=== PATIENT | male | born 1980 | race African-American/Black ===

== ENCOUNTER 2017-08-04 20:05 | Inpatient (IN) | payer OTHER ==
[2017-08-04] MEDS ORDERED: ONDANSETRON 4 MG TAB.RAPDIS PO ONE (20:20)
[2017-08-04] MEDS ORDERED: NORMAL SALINE 1000 ML 1,000 ML IV ONE ×2 (20:20→22:20)
--- NOTE | 2017-08-04 20:22 | ER Document Report ---
ED Medical Screen (RME) - General Chief Complaint: Nausea/Vomiting Stated Complaint: VOMITING Time Seen by Provider: 08/04/17 20:16 Notes: RAPID MEDICAL EVALUATION DISCLOSURE I have seen this patient as part of a Rapid Medical Evaluation and, if applicable, placed any initially appropriate orders. The patient will be seen and fully evaluated, including a full history and physical exam, by a provider ( in Main ED or Fast Track) when a room becomes available. 29-year-old male here with complaints of heat exhaustion. 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 He is not tried anything for the symptoms other than to try staying hydrated. EXAM CTAB RRR Alert oriented conversational TRAVEL OUTSIDE OF THE [place] IN LAST 30 DAYS: No - Related Data Allergies/Adverse Reactions: No Known Allergies Allergy (Unverified 08/04/17 20:08) Past Medical History - Social History Chew tobacco use (# tins/day): No Frequency of alcohol use: Social Drug Abuse: None - Past Medical History Cardiac Medical History: Reports: Hx Hypertension Renal/ Medical History: Denies: Hx Peritoneal Dialysis Physical Exam - Vital signs Vitals: Temp Pulse Resp BP Pulse Ox 98.0 F 79 18 118/76 96 08/04/17 20:14 08/04/17 20:14 08/04/17 20:14 08/04/17 20:14 08/04/17 20:14 Course - Vital Signs Vital signs: Temp Pulse Resp BP Pulse Ox 98.0 F 79 18 118/76 96 08/04/17 20:14 08/04/17 20:14 08/04/17 20:14 08/04/17 20:14 08/04/17 20:14
[2017-08-04 20:54] LABS: ABSOLUTE BASOPHILS # (AUTO) 0.1 10^3/uL (0.0-0.2); ABSOLUTE LYMPHOCYTES (AUTO) 1.6 10^3/uL (0.5-4.7); ABSOLUTE MONOCYTES (AUTO) 0.6 10^3/uL (0.1-1.4); ABSOLUTE NEUT (AUTO) 5.3 10^3/uL (1.7-8.2); BASOPHILS % (AUTO) 0.7 % (0-2); HEMATOCRIT 49.4 % (37.9-51.0); HEMOGLOBIN 16.6 g/dL (13.5-17.0); LYMPHOCYTES % (AUTO) 21.5 % (13-45); MEAN CORPUSCULAR HEMOGLOBIN 27.9 pg (27.0-33.4); MEAN CORPUSCULAR HGB CONC 33.5 g/dL (32.0-36.0); MEAN CORPUSCULAR VOLUME 83 fl (80-97); MONOCYTES % (AUTO) 7.7 % (3-13); PLATELET COUNT 340 10^3/uL (150-450); RED BLOOD COUNT 5.94 10^6/uL (4.35-5.55); SEGMENTED NEUTROPHILS % (AUTO) 70.1 % (42-78); TOTAL CELLS COUNTED % (AUTO) 100 %; WHITE BLOOD COUNT 7.6 10^3/uL (4.0-10.5)
[2017-08-04 21:10] LABS: ALANINE AMINOTRANSFERASE 53 U/L (21-72); ALBUMIN 5.5 g/dL (3.5-5.0); ALKALINE PHOSPHATASE 61 U/L (38-126); ASPARTATE AMINO TRANSFERASE 51 U/L (17-59); BILIRUBIN,DIRECT 0.5 mg/dL (0.0-0.4); BILIRUBIN,TOTAL 2.4 mg/dL (0.2-1.3); BLOOD UREA NITROGEN 36 mg/dL (7-20); CALCIUM 10.3 mg/dL (8.4-10.2); CREATINE KINASE 622 U/L (55-170); GLUCOSE 113 mg/dL (75-110); LIPASE 167.4 U/L (23-300); POTASSIUM 3.9 mmol/L (3.6-5.0); TOTAL PROTEIN 9.9 g/dL (6.3-8.2)
[2017-08-04 21:16] LABS: CARBON DIOXIDE 30 mmol/L (22-30); CHLORIDE 97 mmol/L (98-107); SODIUM 148.6 mmol/L (137-145)
[2017-08-04 21:20] LABS: ANION GAP 22 (5-19)
--- NOTE | 2017-08-04 22:25 | ER Document Report ---
ED General - General Chief Complaint: Nausea/Vomiting Stated Complaint: VOMITING Time Seen by Provider: 08/04/17 20:16 Mode of Arrival: Ambulatory Information source: Patient Notes: 37-year-old male presents emergency department with complaints of nausea, vomiting, and dizziness after working out in the heat for over 6 hours today. Patient states that he has been drinking water but does not think that he has been drinking enough. Patient denies any chest pain, shortness of breath, abdominal pain. He states that he does have a history of hypertension and is on antihypertensive medications. He denies any other medical problems. TRAVEL OUTSIDE OF THE [place] IN LAST 30 DAYS: No - HPI Onset: This afternoon Onset/Duration: Gradual Quality of pain: No pain Severity: None Pain Level: Denies Associated symptoms: Nausea, Vomiting Exacerbated by: Denies Relieved by: Denies Similar symptoms previously: No Recently seen / treated by doctor: No - Related Data Allergies/Adverse Reactions: No Known Allergies Allergy (Verified 08/04/17 22:15) Past Medical History - General Information source: Patient - Social History Smoking Status: Current Some Day Smoker Chew tobacco use (# tins/day): No Frequency of alcohol use: Social Drug Abuse: None Family History: Reviewed & Not Pertinent Patient has suicidal ideation: No Patient has homicidal ideation: No - Past Medical History Cardiac Medical History: Reports: Hx Hypertension Renal/ Medical History: Denies: Hx Peritoneal Dialysis Review of Systems - Review of Systems Constitutional: No symptoms reported EENT: No symptoms reported Cardiovascular: Lightheaded Respiratory: No symptoms reported Gastrointestinal: Nausea, Vomiting Genitourinary: No symptoms reported Musculoskeletal: No symptoms reported Skin: No symptoms reported Neurological/Psychological: No symptoms reported Physical Exam - Vital signs Vitals: Temp Pulse Resp BP Pulse Ox 98.0 F 79 18 118/76 96 08/04/17 20:14 08/04/17 20:14 08/04/17 20:14 08/04/17 20:14 08/04/17 20:14 Interpretation: Normal - Notes Notes: PHYSICAL EXAMINATION: GENERAL: Well-appearing, well-nourished and in no acute distress. HEAD: Atraumatic, normocephalic. EYES: Pupils equal round and reactive to light, extraocular movements intact, sclera anicteric, conjunctiva are normal. ENT: Nares patent, oropharynx clear without exudates. Moist mucous membranes. NECK: Normal range of motion, supple without lymphadenopathy LUNGS: Breath sounds clear to auscultation bilaterally and equal. No wheezes rales or rhonchi. HEART: Regular rate and rhythm without murmurs ABDOMEN: Soft, nontender, nondistended abdomen. No guarding, no rebound. No masses appreciated. Musculoskeletal: Normal range of motion, no pitting or edema. No cyanosis. NEUROLOGICAL: Cranial nerves grossly intact. Normal speech, normal gait. Normal sensory, motor exams PSYCH: Normal mood, normal affect. SKIN: Warm, Dry, normal turgor, no rashes or lesions noted. Course - Re-evaluation Re-evalutation: 08/04/17 22:31 Labs obtained. Patient has elevated creatinine. Patient appears dehydrated. Nausea has resolved. Patient denies hx of renal failure. I will admit to the hospitalist for further treatment. - Vital Signs Vital signs: Temp Pulse Resp BP Pulse Ox 97.8 F 60 15 115/66 100 08/04/17 22:24 08/04/17 22:24 08/04/17 22:24 08/04/17 22:24 08/04/17 22:24 - Laboratory Result Diagrams: 08/04/17 20:36 08/04/17 20:36 Laboratory results interpreted by me: 08/04/17 08/04/17 20:36 20:36 RBC 5.94 H Sodium 148.6 H Chloride 97 L Anion Gap 22 H BUN 36 H Creatinine 3.88 H Est GFR ( Amer) 21 L Est GFR (Non-Af Amer) 17 L Glucose 113 H Calcium 10.3 H Total Bilirubin 2.4 H Direct Bilirubin 0.5 H Creatine Kinase 622 H Total Protein 9.9 H Albumin 5.5 H - EKG Interpretation by Me Additional EKG results interpreted by me: 08/04/17 22:42 EKG: Ventricular rate 73, MN interval 128, QRS duration 92, QTc 454, normal sinus rhythm, no ischemic changes. Discharge - Discharge Clinical Impression: Dehydration Renal failure Qualifiers: Renal failure chronicity: acute Acute renal failure type: unspecified Qualified Code(s): N17.9 - Acute kidney failure, unspecified Disposition: ADMITTED OBSERVATION Admitting Provider: Hospitalist Unit Admitted: Medical Floor
[2017-08-04] MEDS ORDERED: ACETAMINOPHEN 325 MG TABLET PO PRN (22:34)
[2017-08-04] MEDS ORDERED: ONDANSETRON 4 MG TAB.RAPDIS PO PRN (22:34)
[2017-08-04] MEDS ORDERED: CARVEDILOL 12.5 MG TABLET PO ONE (22:49)
--- NOTE | 2017-08-04 22:49 | PDOC H&P ---
History of Present Illness History of Present Illness: MAGY LINDSEY is a 37 year old black male patient with no significant past medical history except for hypertension presents with dizziness, nausea and vomiting of ingested material of 1 day duration. 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 Patient denies diarrhea or urinary complaints. He denies headache, blurring of vision or any seizure activity. His initial workup shows creatinine of 3.88 GFR 21 and CK of 622. The rest of his blood works are unremarkable. Past Medical History Cardiac Medical History: Reports: Hypertension Past Surgical History Past Surgical History: Reports: None Social History Smoking Status: Current Some Day Smoker Frequency of Alcohol Use: None Hx Recreational Drug Use: No Drugs: None - Advance Directive Resuscitation Status: Full Code Family History Family History: Reviewed & Not Pertinent, Hypertension Parental Family History Reviewed: Yes Children Family History Reviewed: Yes Sibling(s) Family History Reviewed.: Yes Medication/Allergy Home Medications: Lisinopril/Hydrochlorothiazide [Lisinopril-Hctz 20-25 mg Tab] 1 tab PO DAILY Allergies/Adverse Reactions: No Known Allergies Allergy (Verified 08/04/17 22:15) Review of Systems Constitutional: PRESENT: as per HPI Eyes: PRESENT: as per HPI Ears: PRESENT: as per HPI Nose, Mouth, and Throat: PRESENT: as per HPI Cardiovascular: PRESENT: as per HPI Respiratory: PRESENT: as per HPI Gastrointestinal: PRESENT: as per HPI Musculoskeletal: PRESENT: as per HPI Neurological: PRESENT: as per HPI Psychiatric: PRESENT: as per HPI Physical Exam Vital Signs: Temp Pulse Resp BP Pulse Ox 97.8 F 60 15 115/66 100 08/04/17 22:24 08/04/17 22:24 08/04/17 22:24 08/04/17 22:24 08/04/17 22:24 Intake & Output 08/03/17 08/04/17 08/05/17 06:59 06:59 06:59 Weight 97 kg General appearance: PRESENT: no acute distress, well-developed, well-nourished Head exam: PRESENT: atraumatic, normocephalic Eye exam: PRESENT: conjunctiva pink, EOMI, PERRLA. ABSENT: scleral icterus Ear exam: PRESENT: normal external ear exam Mouth exam: PRESENT: moist, tongue midline Neck exam: ABSENT: carotid bruit, JVD, lymphadenopathy, thyromegaly Respiratory exam: PRESENT: clear to auscultation huong. ABSENT: rales, rhonchi, wheezes Cardiovascular exam: PRESENT: RRR. ABSENT: diastolic murmur, rubs, systolic murmur Pulses: PRESENT: normal dorsalis pedis pul Vascular exam: PRESENT: normal capillary refill GI/Abdominal exam: PRESENT: normal bowel sounds, soft. ABSENT: distended, guarding, mass, organolmegaly, rebound, tenderness Rectal exam: PRESENT: deferred Extremities exam: PRESENT: full ROM. ABSENT: calf tenderness, clubbing, pedal edema Neurological exam: PRESENT: alert, awake, oriented to person, oriented to place , oriented to time, oriented to situation. ABSENT: motor sensory deficit Psychiatric exam: PRESENT: appropriate affect, normal mood. ABSENT: homicidal ideation, suicidal ideation Skin exam: PRESENT: dry, intact, warm. ABSENT: cyanosis, rash Results Laboratory Results: 08/04/17 20:36 08/04/17 20:36 08/04/17 08/04/17 20:36 20:36 WBC 7.6 RBC 5.94 H Hgb 16.6 Hct 49.4 MCV 83 MCH 27.9 MCHC 33.5 RDW 14.0 Plt Count 340 Seg Neutrophils % 70.1 Lymphocytes % 21.5 Monocytes % 7.7 Eosinophils % 0.0 Basophils % 0.7 Absolute Neutrophils 5.3 Absolute Lymphocytes 1.6 Absolute Monocytes 0.6 Absolute Eosinophils 0.0 Absolute Basophils 0.1 Sodium 148.6 H Potassium 3.9 Chloride 97 L Carbon Dioxide 30 Anion Gap 22 H BUN 36 H Creatinine 3.88 H Est GFR ( Amer) 21 L Est GFR (Non-Af Amer) 17 L Glucose 113 H Calcium 10.3 H Total Bilirubin 2.4 H AST 51 ALT 53 Alkaline Phosphatase 61 Total Protein 9.9 H Albumin 5.5 H Lipase 167.4 08/04/17 20:36 Creatine Kinase 622 H Assessment & Plan - Diagnosis (1) Acute kidney injury Is this a current diagnosis for this admission?: Yes Plan: It looks prerenal azotemia due to dehydration. Patient will be hydrated with normal saline. And will check his BMP in a.m. I hold his lisinopril (2) Rhabdomyolysis Is this a current diagnosis for this admission?: Yes Plan: Patient has mild rhabdomyolysis which will be corrected with hydration. (3) Hypertension Is this a current diagnosis for this admission?: Yes Plan: I will start him on Coreg. - Inpatient Certification Medical Necessity: Need Close Monitoring Due to Risk of Patient Decompensation, Need For IV Fluids
[2017-08-04] MEDS: RINGERS SOLUTION,LACTATED 1,000 ML IV PRN (23:19)
--- NOTE | 2017-08-05 00:22 | EKG REPORT ---
SEVERITY:- ABNORMAL ECG - SINUS RHYTHM NONSPECIFIC T ABNORMALITIES, INFERIOR LEADS : Confirmed by: Faby Lobo MD 05-Aug-2017 00:21:19
[2017-08-05] MEDS: LANSOPRAZOLE 30 MG TAB.RAP.DR PO SCH (05:22)
[2017-08-05] MEDS: RINGERS SOLUTION,LACTATED 1,000 ML IV PRN ×3 (05:23→16:35)
[2017-08-05] MEDS ORDERED: HEPARIN SOD (PORCINE) 5,000 UNIT/ML 1 ML SYRINGE SUBCUT SCH (06:00)
[2017-08-05 06:34] LABS: ABSOLUTE EOSINOPHILS # (AUTO) 0.1 10^3/uL (0.0-0.6); ABSOLUTE MONOCYTES (AUTO) 0.9 10^3/uL (0.1-1.4); ABSOLUTE NEUT (AUTO) 3.6 10^3/uL (1.7-8.2); BASOPHILS % (AUTO) 0.6 % (0-2); EOSINOPHILS % (AUTO) 1.1 % (0-6); HEMATOCRIT 41.3 % (37.9-51.0); LYMPHOCYTES % (AUTO) 39.3 % (13-45); MEAN CORPUSCULAR HEMOGLOBIN 27.9 pg (27.0-33.4); MEAN CORPUSCULAR HGB CONC 33.6 g/dL (32.0-36.0); MEAN CORPUSCULAR VOLUME 83 fl (80-97); MONOCYTES % (AUTO) 11.9 % (3-13); PLATELET COUNT 282 10^3/uL (150-450); RED BLOOD COUNT 4.98 10^6/uL (4.35-5.55); RED CELL DISTRIBUTION WIDTH 14.1 % (11.5-14.0); SEGMENTED NEUTROPHILS % (AUTO) 47.1 % (42-78); TOTAL CELLS COUNTED % (AUTO) 100 %; WHITE BLOOD COUNT 7.6 10^3/uL (4.0-10.5)
[2017-08-05 06:43] LABS: ANION GAP 11 (5-19); BLOOD UREA NITROGEN 32 mg/dL (7-20); CALCIUM 8.4 mg/dL (8.4-10.2); CARBON DIOXIDE 26 mmol/L (22-30); CHLORIDE 105 mmol/L (98-107); CREATINE KINASE 623 U/L (55-170); GLUCOSE 99 mg/dL (75-110); POTASSIUM 3.6 mmol/L (3.6-5.0); SODIUM 142.4 mmol/L (137-145)
[2017-08-05 06:56] LABS: HEMOGLOBIN 13.9 g/dL (13.5-17.0)
--- NOTE | 2017-08-05 11:37 | PDOC PROGRESS REPORT ---
Subjective Progress Note for:: 08/05/17 Subjective:: The patient is a 37-year-old male with a past history of hypertension. He presented to the emergency room on August 04 with dizziness nausea and vomiting after working in the sun for 6 hours. He was found to have acute renal failure with a creatinine of 6.88 and creatinine kinase of 622. He was started on IV fluids and lisinopril was held. His weakness has improved. Reason For Visit: ACUTE KIDNEY INJURY. MILD RHABDOMYOLYSIS Physical Exam Vital Signs: Temp Pulse Resp BP Pulse Ox 97.8 F 67 16 112/64 97 08/05/17 07:53 08/05/17 07:53 08/05/17 07:53 08/05/17 07:53 08/05/17 07:53 Intake & Output 08/04/17 08/05/17 08/06/17 06:59 06:59 06:59 Intake Total 200 Balance 200 Weight 100 kg General appearance: PRESENT: no acute distress - He was Head exam: PRESENT: normocephalic Ear exam: PRESENT: normal external ear exam - she was Mouth exam: PRESENT: moist Neck exam: ABSENT: tracheal deviation Respiratory exam: PRESENT: symmetrical - Is, unlabored Cardiovascular exam: PRESENT: RRR GI/Abdominal exam: PRESENT: normal bowel sounds, soft. ABSENT: tenderness Rectal exam: PRESENT: deferred Neurological exam: PRESENT: alert, awake, oriented to person, oriented to place , oriented to time, oriented to situation Psychiatric exam: PRESENT: appropriate affect Skin exam: ABSENT: rash Results Laboratory Results: 08/05/17 05:51 08/05/17 05:51 08/05/17 08/05/17 05:51 05:51 WBC 7.6 RBC 4.98 Hgb 13.9 D Hct 41.3 MCV 83 MCH 27.9 MCHC 33.6 RDW 14.1 H Plt Count 282 Seg Neutrophils % 47.1 Lymphocytes % 39.3 Monocytes % 11.9 Eosinophils % 1.1 Basophils % 0.6 Absolute Neutrophils 3.6 Absolute Lymphocytes 3.0 Absolute Monocytes 0.9 Absolute Eosinophils 0.1 Absolute Basophils 0.0 Sodium 142.4 Potassium 3.6 Chloride 105 Carbon Dioxide 26 Anion Gap 11 BUN 32 H Creatinine 2.05 H Est GFR ( Amer) 44 L Est GFR (Non-Af Amer) 37 L Glucose 99 Calcium 8.4 08/05/17 05:51 Creatine Kinase 623 H Assessment & Plan - Diagnosis (1) Acute kidney injury Is this a current diagnosis for this admission?: Yes Plan: Continue IV fluids. Avoid nephrotoxic agents. Monitor renal function. (2) Dehydration Is this a current diagnosis for this admission?: Yes Plan: IV fluids, encourage p.o. fluid intake (3) Hypertension Is this a current diagnosis for this admission?: Yes Plan: Stable. Lisinopril on hold. (4) Rhabdomyolysis Is this a current diagnosis for this admission?: Yes Plan: Mild. Monitor creatinine kinase. - Time Time Spent with patient: 25-34 minutes
[2017-08-06 05:34] LABS: ANION GAP 8 (5-19); BLOOD UREA NITROGEN 23 mg/dL (7-20); CALCIUM 8.5 mg/dL (8.4-10.2); CARBON DIOXIDE 30 mmol/L (22-30); CHLORIDE 106 mmol/L (98-107); CREATINE KINASE 542 U/L (55-170); GLUCOSE 96 mg/dL (75-110); PHOSPHORUS 3.2 mg/dL (2.5-4.5); POTASSIUM 3.6 mmol/L (3.6-5.0); SODIUM 143.7 mmol/L (137-145)
[2017-08-06] MEDS: LANSOPRAZOLE 30 MG TAB.RAP.DR PO SCH (05:37)
--- NOTE | 2017-08-06 09:20 | PDOC DISCHARGE SUMMARY ---
General - Admit/Disc Date/PCP Admission Date/Primary Care Provider: 08/04/17 22:45 Discharge Date: 08/06/17 - Discharge Diagnosis (1) Acute kidney injury Is this a current diagnosis for this admission?: Yes Summary: Due to dehydration+ drugs- HCTZ and Losartan (2) Dehydration Is this a current diagnosis for this admission?: Yes (3) Hypertension Is this a current diagnosis for this admission?: Yes (4) Rhabdomyolysis Is this a current diagnosis for this admission?: Yes Summary: Improved - Additional Information Resuscitation Status: Full Code Discharge Diet: As Tolerated, Other (Comments) - drink plenty of fluids Discharge Activity: Activity As Tolerated Prescriptions: Amlodipine Besylate [Norvasc 2.5 mg Tablet] 2.5 mg PO DAILY 30 Days #30 tablet Home Medications: Amlodipine Besylate [Norvasc 2.5 mg Tablet] 2.5 mg PO DAILY 30 Days #30 tablet 08/06/17 History of Present Illness History of Present Illness: MAGY LINDSEY is a 37 year old male with a past history of hypertension. He presented to the emergency room on August 04 with dizziness nausea and vomiting after working in the sun for 6 hours. The patient was found to have acute renal failure with a creatinine of 3.88 and creatinine kinase of 622. He was treated with IV fluids and Losartan and HCTZ were held. Hospital Course Hospital Course: Creatinine improved. It is 1.54 on the day of discharge. Hydrochlorothiazide and Losartan will continue to be on hold. He was given a prescription for amlodipine 2.5 mg for 30 days. He is to get a repeat basic metabolic panel checked on August 11, 2017 and follow- up with his primary care physician in 1 week. The patient was encouraged to drink plenty of fluids. Physical Exam Vital Signs: Temp Pulse Resp BP Pulse Ox 98.5 F 66 18 120/71 98 08/06/17 07:56 08/06/17 07:56 08/06/17 07:56 08/06/17 07:56 08/06/17 07:56 Intake & Output 08/05/17 08/06/17 08/07/17 06:59 06:59 06:59 Intake Total 6559 Output Total 3220 Balance 3339 Weight 100 kg 100 kg General appearance: PRESENT: no acute distress Respiratory exam: PRESENT: symmetrical, unlabored Results Laboratory Results: 08/05/17 05:51 08/06/17 04:36 08/06/17 04:36 Sodium 143.7 Potassium 3.6 Chloride 106 Carbon Dioxide 30 Anion Gap 8 BUN 23 H Creatinine 1.54 H Est GFR ( Amer) > 60 Est GFR (Non-Af Amer) 51 L Glucose 96 Calcium 8.5 Phosphorus 3.2 Magnesium 1.8 08/05/17 08/06/17 05:51 04:36 Creatine Kinase 623 H 542 H Qualifiers - * PATIENT BEING DISCHARGED WITH ANY OF THE FOLLOWING DIAGNOSIS: No Plan Time Spent: Less than 30 Minutes
[2017-08-06] MEDS ORDERED: AMLODIPINE BESYLATE 2.5 MG TABLET PO SCH (10:00)
[2017-08-06 10:18] VITALS: BP 106/59
== END 2017-08-06 10:52 | disposition home or self-care (01) | DRG 683 ==
LOC: ER 20:05 → EDBD 20:05 → OBSVTOIN 22:45 → EH 22:45 → 4S 08-05 01:08
PROVIDERS: ADMIT Internal Medicine; ATTEND Internal Medicine
DX: N17.9 Acute kidney failure, unspecified (principal); M62.82 Rhabdomyolysis; E86.0 Dehydration; I10 Essential (primary) hypertension; R11.2 Nausea with vomiting, unspecified; F17.210 Nicotine dependence, cigarettes, uncomplicated
CPT/HCPCS: 36415; 80048; 80053; 82550; 83690; 83735; 84100; 85025; 93005; 93010; 99285; J1644; J7030; J7120; S0119